=== PATIENT | female | born 1985 | race Caucasian/White ===

== ENCOUNTER 2020-11-24 18:32 | Emergency (ER) | payer MEDICAID, SELFPAY ==
[~2020-11-24] VITALS: Ht 165.1 cm; Wt 90.7 kg
[2020-11-24 18:50] VITALS: BP_SYST 117
[2020-11-24 20:16] LABS: CALCIUM 8.5 mg/dL (8.4-11.0); CREATININE 0.71 mg/dL (0.55-1.30)
[2020-11-24 20:22] LABS: ALBUMIN 2.6 g/dL (3.4-4.8); TOTAL BILIRUBIN 0.4 mg/dL (0.0-1.0)
[2020-11-24 20:38] LABS: HEMATOCRIT 32.9 % (36-48); HEMOGLOBIN 10.6 g/dL (12.0-16.0); MEAN CORPUSCULAR HEMOGLOBIN 25 pg (27-31); MEAN CORPUSCULAR HGB CONC 32 % (32-36); MEAN CORPUSCULAR VOLUME 76 fL (79.0-98.0); RED BLOOD CELL COUNT(AUTO) 4.34 MIL/uL (4.2-6.2); RED CELL DISTRIBUTION WIDTH 17.8 % (9.0-15.0); WHITE BLOOD COUNT (AUTO) 6.7 K/uL (4.8-10.8)
[2020-11-24 20:39] LABS: BASOPHILS % (AUTO) 0.5 % (0.0-2.0); LYMPHOCYTES # (AUTO) 0.7 K/uL (1.0-5.5); LYMPHOCYTES % (AUTO) 10.6 % (20.5-51.5); MONOCYTES # (AUTO) 0.4 K/uL (0.0-1.0); NEUTROPHILS # (AUTO) 5.6 K/uL (1.8-7.7); NEUTROPHILS % (AUTO) 82.9 % (40.0-70.0); PLATELET COUNT (AUTO) 185 K/uL (130-430)
[2020-11-24 20:50] VITALS: BP_SYST 117
== END 2020-11-24 20:50 | disposition home or self-care (01) ==
LOC: SED 18:32
DX: O98.512 Other viral diseases complicating pregnancy, second trimester (principal); U07.1 COVID-19; Z3A.21 21 weeks gestation of pregnancy
CPT/HCPCS: 36415; 76805-TC; 80053; 85025; 99284

== ENCOUNTER 2021-01-10 11:24 | Observation (INO) | payer MEDICAID ==
[~2021-01-10] VITALS: Ht 160 cm; Wt 113.4 kg
[2021-01-10] MEDS ORDERED: RHO(D) IMMUNE GLOBULIN/MALTOSE 1500 UNITS/1.3 ML (WINHRO) INJ ONE (14:45)
== END 2021-01-10 16:20 | disposition home or self-care (01) ==
LOC: SPU 11:24
PROVIDERS: ADMIT Obstetrics & Gynecology; ATTEND Obstetrics & Gynecology
DX: Z34.83 Encounter for supervision of other normal pregnancy, third trimester (principal); Z3A.38 38 weeks gestation of pregnancy; Z88.0 Allergy status to penicillin
CPT/HCPCS: 36415; 86900; 86901; 96372; G0378; J2790; J2792; 59025

== ENCOUNTER 2022-04-24 10:13 | Emergency (ER) | payer MEDICAID, OTHER ==
[~2022-04-24] VITALS: Ht 167.6 cm; Wt 113.4 kg
--- NOTE | 2022-04-24 10:20 | NUR ---
Patient to ER bed H1 to gown for evaluation. Side rails up. Report given to REDD CHAO.
[2022-04-24 10:23] VITALS: BP_SYST 104
--- NOTE | 2022-04-24 10:25 | NUR ---
Pt bib self from home CC left calf pain. Pt is not tender to touch, skin intact no signs of trauma. Pt has cap refill <3sec. VSS. Pt states at this time x2 months. Pt is aaox3 resting in gurney NAD, denies SOB denies neuro defecit.
--- NOTE | 2022-04-24 10:25 | NUR ---
ER DR. AUGUSTE EXAMINING PT
--- NOTE | 2022-04-24 12:30 | NUR ---
PT IN RADIOLOGY DEPT AT THIS TIME. VIA WHEEL CHAIR.
[2022-04-24 12:54] VITALS: BP_SYST 104
== END 2022-04-24 12:54 | disposition home or self-care (01) ==
LOC: SED 10:13
DX: S86.112A Strain of other muscle(s) and tendon(s) of posterior muscle group at lower leg level, left leg, initial encounter (principal); Z88.0 Allergy status to penicillin; Z79.899 Other long term (current) drug therapy; X58.XXXA Exposure to other specified factors, initial encounter; Y93.89 Activity, other specified; Y92.89 Other specified places as the place of occurrence of the external cause; Y99.8 Other external cause status
CPT/HCPCS: 93971; 99284